=== PATIENT | female | born 1990 | race Caucasian/White ===

== ENCOUNTER → 2023-09-10 14:44 | Outpatient (CLI) | payer OTHER, SELFPAY ==
--- NOTE | 2023-09-10 | DI.RAD.S_ITS ---
PROCEDURE: XR CHEST 2V INDICATIONS: chest pain TECHNIQUE: 2 views of the chest were acquired. COMPARISON: None. FINDINGS: Surgical changes and devices: None. Lungs and pleura: Lungs are clear. No pleural effusions or pneumothorax. Mediastinum: Mediastinal contours are normal. Heart size is normal. Bones and chest wall: No suspicious bony abnormalities. Soft tissues appear unremarkable. IMPRESSION: No acute cardiopulmonary abnormality is seen. Dictated by: Joleen Cash M.D. on 09/10/2023 at 16:58 Approved by: Joleen Cash M.D. on 09/10/2023 at 16:59
--- NOTE | 2023-09-10 14:53 | DI.NM.S_ITS ---
PROCEDURE: NM EXERCISE TREADMILL NON NUC COMPARISON: None. INDICATIONS: CHEST PAIN / HYPERTENSION FINDINGS: The patient exercised for 10 minutes reaching 102% of maximum predicted heart rate and average exercise capacity (9.9 METs, CORNELL -5%). Borderline hypertensive response to exercise (resting BP 125/80mmHg, max BP 200/105mmHg). No angina, no ST changes, and no significant ectopy during exercise recovery. IMPRESSION: Low risk, normal treadmill ECG only stress test with average exercise tolerance. Borderline hypertensive response to exercise (resting BP 125/80mmHg, max BP 200/105mmHg). Dictated by: Ozzy Mason MD on 09/10/2023 at 16:09 Approved by: Ozzy Mason MD on 09/10/2023 at 16:10
== END ==
PROVIDERS: Referring Provider Internal Medicine Cardiovascular Disease; Visit Provider Internal Medicine Cardiovascular Disease
DX: R07.89 Other chest pain (principal); I10 Essential (primary) hypertension
CPT/HCPCS: 71046; 93017

== ENCOUNTER → 2023-09-17 16:06 | Outpatient (CLI) | payer OTHER, SELFPAY ==
[2023-09-17 19:35] LABS: Erythrocyte Sedimentation Rate 7 MM/HR (0-20)
== END ==
PROVIDERS: Referring Provider Internal Medicine Cardiovascular Disease; Visit Provider Internal Medicine Cardiovascular Disease
DX: R07.9 Chest pain, unspecified (principal); R07.89 Other chest pain; I10 Essential (primary) hypertension
CPT/HCPCS: 36415; 85651; 86140